=== PATIENT | female | born 2005 | race Caucasian/White ===

== ENCOUNTER 2025-10-07 01:25 | Emergency (ER) | payer OTHER, SELFPAY ==
--- OUTSIDE RECORDS SUMMARY | 2021-09-13 04:00 | XMS_ITS | Continuity of Care Document ---
Author Organization [facility] Address [address] [place] [address] Phone Care Team Providers Care Global Position System Technician Name Role Phone Rose Marie Montelongo NP Unavailable Unavailable Procedures Procedure Date IMMUNIZATION ADMIN Influenza, Injectin, Quad, Flaurix Prophylaxis Adult High Risk For Caries Fluoride Varnish Immun Admin with counseling by MD Hernandez Influenza, Injectin, Quad, Flaurix Prophylaxis Adult Moderate Risk For Caries Fluoride Varnish Moderate Risk For Caries Advance Directives Directive Yes / No Effective Date File Name No Information Encounters Encounter Description Practice Location Reason(s) For Visit Diagnoses Date Provider Providers Copied on Encounter [facility], [address] [place] [address], [id number], tel:[phone] [facility] vaccine (chief complaint) No Information Reginald Trotter. [address] [place] [address], [id number], . tel: [phone] [facility], [address] [place] [address], [id number], tel:[phone] [facility] Delma. [address] [place], [address], [place]. tel:[phone] [facility], [address] [place], [place], [id number], [place] tel:[phone] [facility] No Information No Information [facility], [address] [place], [place], [id number], tel:[phone] [facility] En[facility]tr for oth proc for purpose [facility] Areli Vega. [address] [place], [address], [place]. [phone] Family History Family Member Type Diagnosis Age At Onset No Information Immunizations Vaccine Date Status Comments Influenza, 6 months or older, administered Source: New Immuniza tion Record Flulaval 6 months and up 2017 administered Source: New Immuniza tion Record Payers Payer name Insurance type Covered alliance party ID Authoriza tion(s) Cigna CI [id number] C[employer] CI [id number] Social History Type Description Quantity Date Captured Comments Sex Female Smoking Status No Information Chief Complaint And Reason For Visit From encounter dated '09/13/2021 09:00'. vaccine (chief complaint). Description: Flu shot. Administered in the RD. Reason For Referral Reason For Referral No Information History Of Present Illness Encounter Date Complaint History Of Prese nt Illness vaccine Flu shot. Admini stered in the RD. Functional Status Date Functional Assessmen t No Information Instructions Date Instruction Additional Infor mation No Information Assessments Type Assessment Date No Information Patient Care Teams Name Effective Dates (start - stop) Status Members No Information
--- OUTSIDE RECORDS SUMMARY | 2025-05-27 07:45 | XMS_ITS ---
Author Organization [facility] Address [address] [place] [address] Care Team Providers Care Surfacing Machine Operator Name Role Phone Darlene Knox MD Primary Care Provider Jesus GRANGER, Latoya Valdivia [phone] Results Component Value Reference Range Notes HIV-1/2 Ag/Ab Combo Reviewed date:05/28/2025 08:27:45 PM Interpretation:neg Performing Lab: Notes/Report: HIV 1/2 Ag/Ab Combo Non-Reactive Non-Reactive Hepatitis C Ab Screen Reviewed date:06/01/2025 08:26:46 AM Interpretation:neg Performing Lab: Notes/Report: Hep C Ab Non-Reactive Non-Reactive Index Value <0. 90 Non-Reactive, 0.90-0.99 Indeterminate, >0.99 Reactive Syphilis Ab Screen Reviewed date:06/01/2025 08:26:46 AM Interpretation:neg Performing Lab: Notes/Report: Treponema Ab,IgG/IgM Negative Negative Index Value Please note that all positives are confirmed by RPR testing. Encounters Encounter Location Date Provider Diagnosis [facility] 7TH FLOOR [address] [place], [place] [id number] 05/27/2025 Latoya Lee MD Routine screening for STI (sexually transmitted infection) Z11.3 Assessments Encounter Date Diagnosis (ICD Code) Assessment Notes Treatment Notes Treatment Clinical Notes Section Notes 05/27/2025 Routine screening for STI (sexually transmitted infection) (ICD-10 - Z11.3) Plan Of Treatment Next Appt Details Provider Name:Ayah CASPERP, 10/19/2025 02:00:00 PM, [address] [place], [place], [id number], Progress Notes * Doc LEHMANDOB:[birth year] (19 yo F)Acc No.[id number]:05/27/2025 Lab Visit Patient: Doc Anderson Provider: Hanna Lee MD :2005 A ge:19 Y S ex:Female Date:05/27/2025 Address:[address] [place], [place] [id number] Pcp:Dalrene Knox MD Assessment: * Assessment: 1. R outine screening for STI (sexually transmitted infection) - Z11.3 Plan: * Treatment: Value Reference Range H IV 1/2 AB Non-Reactive Non-Reactive - * Latoya Lee MD 05/28/20 08:27:39 PM EDT > ?LAB: Syphilis Ab Screen (Collection Date & Time - 05/27/2025 12:45 PM)?neg * Value Reference Range S yphilis Screen Negative Negative - Index Dary ue * Latoya Lee MD 06/01/20 08:26:48 AM EDT > negative syphilis testing ?LAB: Hepatitis C Ab Screen (Collection Date & Time - 05/27/2025 12:45 PM)? neg* Value Reference Range H epatitis C Ab Non-Reactive Non-Reactive - Index Value * Latoya Lee MD 06/01/20 08:26:59 AM EDT > negative * Electronic signature of Christoph Lee MD on 10/07/2025 at 06:59 AM EST Sign off status: Pending * Provider: Hanna Lee MD Date: 0 05/27/2025 Generated for Krishani ng/Scottg/eTransmitting on: 1 12/08/2024 06:59 AM EST
[2025-10-07 02:13] VITALS: BP 144/78; PULSE 90; RESP 16; TEMP 36.6; O2SAT 99; BMI 26.2
[2025-10-07 04:30] VITALS: BP 115/57; PULSE 93; RESP 18; TEMP 36.8; O2SAT 98
--- OUTSIDE RECORDS SUMMARY | 2025-10-07 06:59 | XMS_ITS | Clinical Summary ---
Author Organization [facility] Address [address] [place] [address] Care Team Providers Care Grain Cleaner And Transfer Operator Name Role Phone Unavailable Primary Care Provider Unavailabl e Family History Medical History Relation Name Comments Heart Disease Maternal Aunt WPW with abla tion Heart Disease Paternal Grandfather Relation Name Status Comments Maternal Aunt Paternal Grandfather Social History Tobacco Use Types Packs/Day Years Used Date Smoking Tobacco: Never Comments Unknown Sex and Gender Information Value Date Recorded Sex Assigned at Not on file Legal Sex Female 3:05 PM EDT Gender Identity Not on file Sexual Orientation Not on file Plan of Treatment Health Maintenance Due Date Last Done Comments Chlamydia Screening 2003 Pediatric Cardiac Risk Screening 2006 Well Child Visit Annual 2006 Anxiety Screening 2015 Depression Screening 2015 Varicella Vaccines (1 of 2 - 13+ 2-dose series) 2016 HIV Screening with Documente d Verbal Consent 2018 HPV Vaccines (1 - 3-dose series) 2018 Hepatitis C Screening 2021 TDAP/TD Vaccine 18+ 2021 Hepatitis B Vaccines (1 of 3 - 19+ 3-dose series) 2022 Cervical Cancer Screening 2024 COVID-19 Vaccine (1 - 2024-2 6 season) 2025 Influenza Vaccine (#1) 2025 Pneumococcal: Peds (0-5y) OR At-Risk Patient (6-49y) Aged Out No longer eligib le based on patient's age to complete this topic Insurance CIG[employer]
--- OUTSIDE RECORDS SUMMARY | 2025-10-07 06:59 | XMS_ITS | Patient Health Record ---
Author Organization [facility] Address [address] [place] [address] Care Team Providers Care Green Inspector Name Role Phone Darlene Knox MD Primary Care Provider Jesus GRANGER, Latoya Unavailable [phone] Sushma SNEED, Mariza Unavailable Allergies No Known Allergies Results Component Value Reference Range Notes GC/Chlamydia, Aptima Swab, R NA PCR Reviewed date:05/28/2025 08:27:45 PM Interpretation:neg x 2 Performing Lab: Notes/Report: Trichomonas Vaginalis, Swab, RNA PCR Reviewed date:05/28/2025 08:27:45 PM Interpretation:neg Performing Lab: Notes/Report: Culture, Yeast with suscepti bility Reviewed date:06/07/2025 12:52:11 PM Interpretation:negative Performing Lab: Notes/Report: CULTURE, YEAST, WITH LIMITED SUSCEPTIBILITY Testing performed at: [email or web address], [address] [place] [address], [phone], Inspector Penetrant: STACEY KIM MD What is the source? vaginal Micro Number: [id number] Test Status: Final Specimen Source: Vaginal Specimen Quality: Adequate Result: No yeast isolated CULTURE, YEAST, WITH LIMITED SUSCEPTIBILITY SEE NOTE Syphilis Ab Screen Reviewed date:06/01/2025 08:26:46 AM Interpretation:neg Performing Lab: Notes/Report: Hepatitis C Ab Screen Reviewed date:06/01/2025 08:26:46 AM Interpretation:neg Performing Lab: Notes/Report: HIV-1/2 Ag/Ab Combo Reviewed date:05/28/2025 08:27:45 PM Interpretation:neg Performing Lab: Notes/Report: Vaginitis DNA (BD Affirm Scr een) Reviewed date:05/28/2025 08:27:45 PM Interpretation:neg x 3 Performing Lab: Notes/Report: Thin Prep Reflex to HPV Reviewed date:06/01/2025 03:12:59 PM Interpretation:NILM Performing Lab: Notes/Report: THINPREP TIS PAP W/REFL HPV mRNA E6/E7 Testing performed at: [email or web address], [address] [place] [address], [phone], Inspector Penetrant: STACEY KIM MD CLINICAL INFORMATION: SEE COMMENT RESULT COMMENT: 19 YO FIRST PAP LMP: NONE GIVEN PREV. PAP: NONE GIVEN PREV. BX: NONE GIVEN SOURCE: [facility] STATEMENT OF ADEQUACY: SEE COMMENT RESULT COMMENT: Satisfactory for evaluation. Endocervical/transformation zone component present. INTERPRETATION/RESULT: SEE COMMENT RESULT COMMENT: Cytology Results: Negative for intraepithelial lesion or malignancy. COMMENT: SEE COMMENT RESULT COMMENT: This Pap test could not be evaluated with the ThinPrep(R) Imaging System. The slide was manually screened according to routine procedures. DIRECTOR STAFFING: SEE COMMENT RESULT COMMENT: CASPER, CT(ASCP) CT screening location: [place] [address] REVIEW DIRECTOR STAFFING: SEE COMMENT RESULT COMMENT: MALVIN BROWN(ASCP) CT screening location: [place] [address] COMMENT EXPLANATORY NOTE: The Pap is a screening test for cervical cancer. It is not a diagnostic test and is subject to false negative and false positive results. It is most reliable when a satisfactory sample, regularly obtained, is submitted with relevant clinical findings and history, and when the Pap result is evaluated along with historic and current clinical information. THINPREP TIS PAP W/REFL HPV mRNA E6/E7 REPORT Reason For Referral No Information Medications Medication SIG (Take, Route, Frequency, Duration) Notes Start Date End Date Status Levora 0.15/30 (28) 0.15-30 MG-MCG Tablet 1 tablet Orally Once a day 09/02/2024 Active Immunizations Vaccine Route Administration Date Status Comme nts COVID-19/Moderna Bivalent (Historical Recording Only) Unknown 09/14/2022 Administered COVID-19/Pfizer IM Intramuscular 02/04/2021 Administered COVID-19/Pfizer IM Intramuscular 02/25/2021 Administered COVID-19/Pfizer (Historical Recording Only) Unknown 10/11/2021 Administered DTaP (Infanrix) State Unknown 01/11/2004 Administered DTaP (Infanrix) State Unknown 03/16/2004 Administered DTaP (Infanrix) State Unknown 05/09/2004 Administered DTaP (Infanrix) State Unknown 05/29/2005 Administered DTaP (Infanrix) State Unknown 01/04/2009 Administered Flu Historical Recording Unknown 09/02/2010 Administere d Flu Historical Recording Unknown 08/31/2011 Administere d Flu Historical Recording Unknown 09/03/2012 Administere d Flu Historical Recording Unknown 09/15/2013 Administere d Flu Historical Recording Unknown 09/13/2021 Administere d Flu Historical Recording Unknown 09/14/2022 Administere d HepA, ped/adol (Havrix/Vaqta) State Unknown 01/17/2012 Administered HepA, ped/adol (Havrix/Vaqta) State Unknown 01/02/2014 Administered HepB, ped/adol (Engerix) State Unknown 2003 Administered HepB, ped/adol (Engerix) State Unknown 05/09/2004 Administered HepB, ped/adol (Engerix) State Unknown 09/14/2004 Administered HIB 3 dose (PedvaxHIB) State Unknown 01/11/2004 Administered HIB 3 dose (PedvaxHIB) State Unknown 03/16/2004 Administered HIB 3 dose (PedvaxHIB) State Unknown 04/26/2005 Administered HPV9 (Gardasil 9) State IM Intramuscular 03/02/2016 Admini stered HPV9 (Gardasil 9) State IM Intramuscular 03/05/2017 Admini stered IIV4 Preserv. Free State 0.5 ml IM Intramuscular 08/19/2020 Administered IPV (Ipol) State Unknown 01/11/2004 Administered IPV (Ipol) State Unknown 03/16/2004 Administered IPV (Ipol) State Unknown 05/29/2005 Administered IPV (Ipol) State Unknown 01/04/2009 Administered MCV4 (Menactra) State IM Intramuscular 03/02/2016 Administ ered MCV4 (Menactra) State IM Intramuscular 10/25/2021 Administ ered MenB (Bexsero) Private IM Intramuscular 11/14/2023 Adminis tered MenB (Bexsero) State IM Intramuscular 11/01/2022 Administe red MMR (MMR II) State Unknown 04/26/2005 Administered MMR (MMR II) State Unknown 01/04/2009 Administered PCV7 (Prevnar) Unknown 01/11/2004 Administered PCV7 (Prevnar) Unknown 05/09/2004 Administered PCV7 (Prevnar) Unknown 11/28/2004 Administered Tdap (Boostrix) State IM Intramuscular 03/02/2016 Administ ered KRISTY (Varivax) State Unknown 11/28/2004 Administered KRISTY (Varivax) State Unknown 01/04/2009 Administered Social History Tobacco Use: Social History Observation Description Date Details (start date - stop date) Never Smoker NA - NA Social History General - Historical Social Info Question Answer Notes Tobacco Use Smoking status never smoked Smokeless tobacco use? No Second hand exposure to smoke? No Tobacco/Alcohol/Substance Us e Social Info Question Answer Notes Adult Screen (18 and over) Smoking Status Current Smok er How many cigarettes per day do you smoke? 6 to 10 (1/2 pack) <1 pack/day Smokeless tobacco use? No How many times in the past y ear have you used marijuana? Less than daily How many times in the past y ear have you used an illegal drug (not marijuana) or used a prescription medication for non-medical reasons? Never How often do you have a drin k containing alcohol? 2-4 times a month (2 points) On days that you drink, how many standard drinks containing alcohol do you consume? 5 or 6 drinks (2 points) How often do you have six or more drinks on one occasion? Less than monthly (1 point) Additional Details Category Social Info Options Details Abuse/Sexual History - Historical Sexually active denies Sexual abuse denies Substance abuse/use denies Gender/Sexual History Gender identity Fem glenny Preferred pronoun She Sexual preference/identity Lesbi an, og or homosexual Sexual activity yes Sexual Partners Female General - Historical occupation majorin g in Sociology household lives with ailyn real, 2 older sisters school Fall 2022: [employer] more at [employer] lead risk House circa: 191 2; renovated Tobacco/Alcohol/Substance Use Secondhand smoke exposur e to smoke No Problems Problem Type SNOMED Code ICD Code Onset Dates Problem Status W/U Status Risk Notes Problem Dysmenorrhea (599738556) Dysmenorrhea in adolescent (N94.6) Active confirmed stable on OCP Problem Palpitations (20550734) Palpitations (R00.2) Active confirmed 10/18: likely secondary to anxiety; family history of WPW so will refer to cardiology 02/17: family never heard from cardiology; still having intermittent palpitations 11/20: did not see cardiology; still very occasional palpitations - will start documenting when/circumsta nces Problem Recurrent vaginitis (N76.0) Active confirmed Problem Anxiety (38755757) Anxiety (F41.9) Active confirmed increased in September 2021; referral to [facility] for therapy 02/17: much improved 11/20: doing well; still looking for a therapist 11/21: stable Problem Disease caused by Severe acute respiratory syndrome coronavirus 2 (disorder) (835233617) COVID (U07.1) Active confirmed 03/25/2022 Vital Signs Heart Rate 83 /min 05/27/2025 Blood pressure diastolic 75 mm Hg 05/27/2025 Weight-kg 57.7 kg 05/27/2025 Height 62.5 in 05/27/2025 Blood pressure systolic 132 mm Hg 05/27/2025 Weight 127.2 lbs 05/27/2025 BMI 22.89 kg/m2 05/27/2025 Encounters Encounter Location Date Provider Diagnosis [facility] 7TH FLOOR [address] [place], [place] [phone] 05/27/2025 Latoya Lee MD Routine screening fo r STI (sexually transmitted infection) Z11.3 [facility] [address] [facility] [address], [place] [phone] 05/27/2025 Latoya Lee MD Recurrent vaginitis N76.0 ; Cervical cancer screening Z12.4 ; Contraceptive management Z30.9 and Routine screening for STI (sexually transmitted infection) Z11.3 [facility] [address] [facility] [address], [place] [phone] 09/23/2025 Mariza SNEED [facility] [address] [place], [place] [id number] 08/13/2025 Darlene Knox MD [facility] [address] [place] [address] 05/26/2025 Latoya Lee MD [facility] [address] [facility] 9th floor [place], [place] [phone] 04/06/2025 Latoya Lee MD [facility] [address] [place] [address] 02/27/2025 Darlene Knox MD Assessments Encounter Date Diagnosis (ICD Code) Assessment Notes Treatment Notes Treatment Clinical Notes Section Notes 05/27/2025 Cervical cancer screening (ICD-10 - Z12.4) Pap tests screen for cervical cancer/pre-cancer and HPV which is a virus that can cause cervical cancer. First Pap test collected today. 05/27/2025 Recurrent vaginitis (ICD-10 - N76.0) Discussed possible causes of recurrent symptoms today. No prior records available regarding culture results and no real improvement with treatment for yeast or BV in past. Exam today reassuring with no evidence of LS or other chronic inflammatory condition. After discussion, BD affirm and yeast culture sent in addition to routine STI screening. Discussed vulvar/vaginal care in detail, avoiding irritants, limited data to support boric acid, sits baths and barrier cream for comfort as needed. Will plan follow up this winter when home from school, sooner as needed 05/27/2025 Routine screening for STI (sexually transmitted infection) (ICD-10 - Z11.3) 05/27/2025 Contraceptive management (ICD-10 - Z30.9) Overall happy with OCP, mainly using for menstrual management. Discussed pros/cons of continuing vs. alternative method (progesterone only pill, IUD). Current smoker however not daily, given young age not an absolute contraindication to YVETTE but I recommended she strongly consider a progesterone only method should she continue smoking. 05/27/2025 Routine screening for STI (sexually transmitted infection) (ICD-10 - Z11.3) Routine STI testing pending Plan Of Treatment Pending Test Test Name Order Date GC/Chlamydia/Trich, Aptima Swab, RNA PCR ( female only) 05/27/2025 Next Appt Details Provider Name:Ayah Jean ZACK, 10/19/2025 02:00:00 PM, [address] [place], [place], [phone], Insurance Providers Payer Name Payer Address Payer Phone Subscriber Number Group Number Insured Name Patient Relationship to Insured Coverage Start Date Coverage End Date C[employer] [address] [place] [address] [phone] [id number] Rosaline Aimee Natural Child - Insured has Financial Responsibility Medical (General) History Medical History History ICD Code 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 No SBE prophylaxis Dysmenorhea - 2019 improved with COCPs Surgical History Surgery Date(Month/Year) wisdom teeth
[2025-10-07] MEDS: Lidocaine/Racepinep/Tetracaine 3 ML GEL.PF.APP TOPICAL (07:18)
--- NOTE | 2025-10-07 07:47 | ED.WOUNDLAC ---
HPI - Wound/Laceration General Chief Complaint: Wound/Laceration Stated Complaint: Object fell on head, lac Time Seen by Provider: 10/07/25 06:55 Source: patient Mode of arrival: ambulatory Limitations: no limitations History of Present Illness ED Provider: NUBIA MONTGOMERY narrative: 19-year-old female with no significant past medical history not on thinners vaccines are up to date who noted a pull-up bar in a door frame fell and hit her on the head while she was using it last night. She had no LOC. She has no other injuries. She has a small laceration to the top of the scalp. She has no neck pain. She has not been confused or had any vomiting. Onset (ago): hour(s) (hours) Location: scalp Place: home Patient tetanus UTD: Yes Context: accidental Associated symptoms: none Treatments prior to arrival: bandage Related Data Allergies Allergy/AdvReac Type Severity Reaction Status Date / Time No Known Allergies Allergy Verified 10/07/25 02:19 Review of Systems Review of Systems: Yes all other systems are reviewed and are negative [facility] Past Medical History Attestation statement: The following information was validated with the patient. Source: old records reviewed Medical History (Updated 10/07/25 @ 07:52 by Katlin Burciaga DO) No pertinent past medical history Social History Social History (Updated 10/07/25 @ 07:52 by Katlin Burciaga DO) Patient Tobacco Use Status: Never used Tobacco Physical Exam Vital Signs: Vital Signs: Last Vital Signs Temp 98.3 F 10/07/25 04:30 Pulse 93 10/07/25 04:30 Resp 18 10/07/25 04:30 BP 115/57 L 10/07/25 04:30 Pulse Ox 98 10/07/25 04:30 O2 Del Method Room Air 10/07/25 04:30 BMI result Body Mass Index 26.2 Appearance: Alert. Oriented X3. No acute distress. Eyes: Pupils equal, round and reactive to light. ENT: Pharynx normal. there is a horizontal 2 cm superficial laceration about 4 cm from the hairline into the bleeding is Neck: Normal inspection. CVS: Pulses normal. Respiratory: No respiratory distress. Abdomen: atraumatic Skin: Skin warm and dry. Extremities: No lower extremity edema. Neuro: Oriented X 3. No motor deficit. No sensory deficit. Medications Administered Discontinued Medications Generic Name Dose Route Start Last Admin Trade Name Ryan PRN Reason Stop Dose Admin Lidocaine/Epinephrine/Tetracaine 3 ml 10/07/25 06:58 10/07/25 07:18 Lidocaine/Racepinep/Tetracaine 3 Ml Gel.Pf.Keisha TOPICAL 10/07/25 06:59 3 ml ONCE ONE Administration Medical Decision Making Medical Decision Making MDM Narrative: 19-year-old female with isolated 2 cm laceration to the scalp after a pull-up bar fell on her. She is GCS 15, she is not on thinners, tetanus is up-to-date, she is not vomiting, she is not confused she is not need any advanced imaging. I am going to apply let to the scalp and apply 2 neo to close the wound. Differential Diagnosis Differential Diagnoses: The differential diagnosis associated with the presentation includes head injury, laceration Admission/Observation Consideration of admission/observation: Escalation of care including admission/observation considered GCS 15 stable for the Independent Historian Clinical information obtained from an independent historian. History obtained from or confirmed by: Friend Tests considered The following testing was considered but not selected: CT head but no LOC not on thinners GCS 15 she also has no neck pain I do not think she needs any advanced imaging Procedures Laceration Laceration 1: Site: scalp Size (cm): 2 Description: linear Depth: simple, single layer Local Anesthetic: other anesthetic Pre-repair: wound explored and irrigated extensively Skin layer closed with: neo (2) Discharge Plan Discharge Clinical Impression: Laceration Patient Disposition: Home, Self-Care Instructions: Staple Care (ED), Head Laceration (ED) Additional Instructions: Monitor your head injury symptoms that means return for air vomiting more than 2 times, confusion, severe headache, any other concerns. If you are not having any symptoms such as headache or feeling foggy can proceed with normal activities but if you are feeling foggy with mild headaches I would do brain rest for the next 5 days at includes no computers, movies, reading, exercise, alcohol use Your neo will be removed in 10 days the [facility] should be able to remove them You can shower with them but avoid any other water exposure like hot tub, open water, pool Monitor for signs of redness, yellow drainage, fever, swelling or any other signs of infection You can take [id number] Tylenol or Motrin as needed for Stand Alone Forms: Work/School Release Print Language: Estonian
[2025-10-07 08:21] VITALS: BP 130/68; PULSE 83; RESP 20; TEMP -17.7; TEMP 0; O2SAT 97
== END 2025-10-07 08:22 | disposition home or self-care (01) ==
PROVIDERS: Emergency Provider Emergency Medicine
DX: S01.01XA Laceration without foreign body of scalp, initial encounter (principal); W20.8XXA Other cause of strike by thrown, projected or falling object, initial encounter; Y93.B2 Activity, push-ups, pull-ups, sit-ups; Y92.009 Unspecified place in unspecified non-institutional (private) residence as the place of occurrence of the external cause; Y99.9 Unspecified external cause status
CPT/HCPCS: 12001; 99282; 99284